=== PATIENT | male | born 1945 | race Caucasian/White ===

== ENCOUNTER 2019-01-17 21:38 | Inpatient (IN) | payer MEDICARE, OTHER ==
[~2019-01-17] VITALS: Ht 170.2 cm; Wt 72.7 kg
[2019-01-17] MEDS ORDERED: MORPHINE SULFATE 4 MG/ML, 1ML ONE (21:55)
[2019-01-17] MEDS ORDERED: MORPHINE SULFATE 4 MG/ML, 1ML IVPush PRN (22:00)
--- NOTE | 2019-01-17 22:00 | NUR ---
Patient placed on supplemental oxygen @ 2LPM after morphine administration. Call gudino within reach.
[2019-01-17 22:02] LABS: BASOPHILS # (AUTO) 0.06 x10^3/uL (0-0.1); BASOPHILS % (AUTO) 1 % (0-1); EOSINOPHILS # (AUTO) 0.01 x10^3/uL (0-0.4); EOSINOPHILS % (AUTO) 0 % (1-7); LYMPHOCYTES # (AUTO) 1.74 x10^3/uL (1-3.4); LYMPHOCYTES % (AUTO) 14 % (22-44); MD NO; MEAN CORPUSCULAR HEMOGLOBIN 36.1 pg (27.5-34.5); MEAN CORPUSCULAR HGB CONC 33.7 g/dL (33.2-36.2); MEAN PLATELET VOLUME 7.8 fL (7.4-10.4); MONOCYTES # (AUTO) 1.14 x10^3/uL (0.2-0.8); MONOCYTES % (AUTO) 9 % (2-9); NEUTROPHILS # (AUTO) 9.36 x10^3/uL (1.8-6.8); NEUTROPHILS % (AUTO) 76 % (42-75); PLATELET COUNT 210 x10^3/uL (130-400); RED BLOOD COUNT 4.43 x10^6/uL (4.38-5.82); RED CELL DISTRIBUTION WIDTH 14.6 % (9.4-14.8)
[2019-01-17 22:14] LABS: ALANINE AMINOTRANSFERASE 35 U/L (12-78); ALBUMIN 3.4 g/dL (3.4-5.0); ANION GAP 13 mmol/L (5-15); CALCIUM 8.6 mg/dL (8.5-10.1); CHLORIDE 96 mmol/L (98-107)
[2019-01-17 22:18] LABS: ALKALINE PHOSPHATASE 46 U/L (45-117); BILIRUBIN,TOTAL 1.2 mg/dL (0.2-1.0); TOTAL PROTEIN 7.5 g/dL (6.4-8.2); TROPONIN I < 0.015 ng/mL (0.000-0.045)
[2019-01-17] MEDS ORDERED: OMNIPAQUE 350 MG/ML, 100ML BOTTLE ONE (22:57)
--- NOTE | 2019-01-17 23:36 | NUR ---
Incentive spirometer provided with teaching, patient evaluated using demonstration, demonstrates appropriate use. Plan of care updated, patient is resistant to admission.
[2019-01-18] MEDS ORDERED: POTASSIUM CHLORIDE 20 MEQ, MAGNESIUM SULFATE 2 GM, THIAMINE 200 MG, MVI ADULT 10 ML, FO... IV SCH (00:18)
[2019-01-18] MEDS ORDERED: BISACODYL 10 MG SUPP PR PRN (00:30)
[2019-01-18] MEDS ORDERED: LORazepam 2 MG/ML, 1ML IV PRN ×5 (00:30)
[2019-01-18] MEDS ORDERED: ONDANSETRON ODT 4 MG PO PRN (00:30)
[2019-01-18] MEDS ORDERED: LORazepam 0.5MG TABLET PO PRN (00:30)
[2019-01-18] MEDS ORDERED: HYDROmorphone 2 MG/ML, 1ML IVPush PRN (00:30)
[2019-01-18] MEDS ORDERED: PROMETHAZINE 25 MG/ML, 1ML IM PRN (00:30)
[2019-01-18] MEDS ORDERED: KETOROLAC 30 MG/1 ML IVPush PRN (00:30)
[2019-01-18] MEDS ORDERED: POLYETHYLENE GLYCOL 17 GM PACKET PO PRN (00:30)
[2019-01-18] MEDS ORDERED: hydrALAzine 20 MG/ML, 1ML IVPush PRN (00:30)
[2019-01-18] MEDS ORDERED: DOCUSATE 100 MG CAPSULE PO PRN (00:30)
[2019-01-18] MEDS ORDERED: OXYcodone IR 5MG TABLET PO PRN (00:30)
[2019-01-18] MEDS ORDERED: ONDANSETRON 2MG/ML, 2ML IVPush PRN (00:30)
[2019-01-18] MEDS ORDERED: LORazepam 1MG TABLET PO PRN ×4 (00:30)
[2019-01-18 00:31] VITALS: BP 154/82
[2019-01-18 01:17] LABS: FREE T4 (FREE THYROXINE) 1.12 ng/dL (0.76-1.46); THYROID STIMULATING HORMONE 2.39 mIU/L (0.358-3.740)
[2019-01-18 01:35] LABS: HEMOGLOBIN A1C 5.4 % (4.2-6.3)
== END 2019-01-18 01:35 | disposition left against medical advice (07) | DRG 184 ==
LOC: ED 23:29 → EDIP 23:30 → 3NW 23:58
PROVIDERS: ADMIT Internal Medicine; ATTEND Internal Medicine
DX: S22.41XA Multiple fractures of ribs, right side, initial encounter for closed fracture (principal); E87.1 Hypo-osmolality and hyponatremia; F10.230 Alcohol dependence with withdrawal, uncomplicated; G62.1 Alcoholic polyneuropathy; E87.8 Other disorders of electrolyte and fluid balance, not elsewhere classified; M50.30 Other cervical disc degeneration, unspecified cervical region; Z53.21 Procedure and treatment not carried out due to patient leaving prior to being seen by health care provider; F10.220 Alcohol dependence with intoxication, uncomplicated; Y90.9 Presence of alcohol in blood, level not specified; F17.210 Nicotine dependence, cigarettes, uncomplicated; M47.892 Other spondylosis, cervical region; W18.2XXA Fall in (into) shower or empty bathtub, initial encounter; Y93.E1 Activity, personal bathing and showering; Y92.031 Bathroom in apartment as the place of occurrence of the external cause
CPT/HCPCS: 36415; 70450; 71250; 72125; 74177; 80053; 80307; 82306; 82607; 83036; 83735; 84100; 84439; 84443; 84484; 85025; 93005; 96374; G0378; Q9967; J2270

== ENCOUNTER 2019-02-02 15:30 | Inpatient (IN) | payer MEDICARE, OTHER ==
[~2019-02-02] VITALS: Ht 167.6 cm; Wt 77.0 kg
[2019-02-02] MEDS ORDERED: METOPROLOL 1 MG/ML, 5ML ONE (15:43)
[2019-02-02 15:52] LABS: BASOPHILS # (AUTO) 0.18 x10^3/uL (0-0.1); BASOPHILS % (AUTO) 2 % (0-1); EOSINOPHILS # (AUTO) 0.05 x10^3/uL (0-0.4); EOSINOPHILS % (AUTO) 1 % (1-7); LYMPHOCYTES # (AUTO) 2.35 x10^3/uL (1-3.4); LYMPHOCYTES % (AUTO) 21 % (22-44); MD NO; MEAN CORPUSCULAR HEMOGLOBIN 35.6 pg (27.5-34.5); MEAN CORPUSCULAR HGB CONC 33.1 g/dL (33.2-36.2); MEAN CORPUSCULAR VOLUME 107.6 fL (81-97); MEAN PLATELET VOLUME 7.4 fL (7.4-10.4); MONOCYTES # (AUTO) 0.83 x10^3/uL (0.2-0.8); MONOCYTES % (AUTO) 7 % (2-9); NEUTROPHILS # (AUTO) 7.93 x10^3/uL (1.8-6.8); NEUTROPHILS % (AUTO) 70 % (42-75); PLATELET COUNT 235 x10^3/uL (130-400); RED BLOOD COUNT 4.37 x10^6/uL (4.38-5.82)
[2019-02-02] MEDS ORDERED: METOPROLOL 1 MG/ML, 5ML IVPush ONE (16:00)
[2019-02-02] MEDS ORDERED: SODIUM CHLORIDE FLUSH 10ML SYR IVF ONE (16:00)
[2019-02-02 16:04] LABS: INTERNATIONAL NORMALIZED RATIO 1.01 (0.93-1.1); PROTHROMBIN TIME 10.6 Seconds (9.6-11.5)
[2019-02-02 16:09] LABS: TROPONIN I < 0.015 ng/mL (0.000-0.045)
--- NOTE | 2019-02-02 16:14 | NUR ---
URINE COLLECTED/SENT TO LAB. HR CONTINUES TO RANGE FROM 72-145 ON MONITOR. WHEN HR WITHIN NORMAL RATE, PT WITHOUT ABD PAIN. VS UPDATED IN COMPUTER.
[2019-02-02] MEDS ORDERED: MAGNESIUM SULFATE 3 GM, THIAMINE 100 MG, FOLIC ACID 1 MG, MVI ADULT 10 ML in SODIUM CHL... IV ONE (16:30)
[2019-02-02 16:32] LABS: AMPHETAMINE SCREEN, URINE Negative (Negative); BARBITURATE SCREEN, URINE Negative (Negative); BENZODIAZEPINE SCREEN, URINE Negative (Negative); CANNABINOID SCREEN, URINE Negative (Negative); COCAINE SCREEN, URINE Negative (Negative); METHADONE SCREEN, URINE Negative (Negative); OPIATE SCREEN, URINE Negative (Negative)
[2019-02-02] MEDS ORDERED: LORazepam 2 MG/ML, 1ML ONE (16:37)
[2019-02-02] MEDS: LORazepam 2 MG/ML, 1ML IVPush PRN ×2 (16:41→18:31)
[2019-02-02] MEDS ORDERED: AMIODARONE 50 MG/ML, 3ML ONE (16:42)
--- NOTE | 2019-02-02 16:48 | NUR ---
ATIVAN GIVEN FOR POTENTIAL ALCOHOL WITHDRAWAL. PT NORMALLY HEAVY DRINKER, 2 BEERS AND AT LEAST 12 OZ OF VODKA DAILY FOR GREATER THAN 15 YEARS. PER , PT HAS NEVER STOPPED DRINKING DURING 15 YEARS. AMIODARONE GIVEN FOR PERSISTENT AFIB WITH RVR, RATE UP TO 160S. FOLLOWING ADMINISTRATION, PT IN AFIB RANGING 70-80S RATE. BANANA BAG INFUSING PER ERP ORDER. AWAITING ADMIT BED.
[2019-02-02 16:55] LABS: ALANINE AMINOTRANSFERASE 34 U/L (12-78); ALBUMIN 3.2 g/dL (3.4-5.0); ANION GAP 10 mmol/L (5-15); CALCIUM 8.2 mg/dL (8.5-10.1); CHLORIDE 101 mmol/L (98-107); CREATININE 1.02 mg/dL (0.7-1.3)
--- NOTE | 2019-02-02 16:56 | NUR ---
DR KAUFFMAN IN TO SEE PT
[2019-02-02 16:57] LABS: ALKALINE PHOSPHATASE 95 U/L (45-117); BILIRUBIN,TOTAL 0.7 mg/dL (0.2-1.0); TOTAL PROTEIN 6.8 g/dL (6.4-8.2)
[2019-02-02] MEDS ORDERED: AMIODARONE 50 MG/ML, 3ML IVPush ONE (17:00)
[2019-02-02] MEDS ORDERED: POTASSIUM CHLORIDE 20 MEQ, MAGNESIUM SULFATE 2 GM, THIAMINE 200 MG, MVI ADULT 10 ML, FO... IV SCH (17:35)
--- NOTE | 2019-02-02 17:35 | NUR ---
REPORT CALLED TO VELASQUEZ ON TELE FLOOR.
[2019-02-02] MEDS ORDERED: MAGNESIUM SULFATE PMX 2GM/50ML 50 ML IV ONE (18:00)
[2019-02-02] MEDS ORDERED: DOCUSATE 100 MG CAPSULE PO PRN (18:00)
[2019-02-02] MEDS ORDERED: ONDANSETRON ODT 4 MG PO PRN (18:00)
[2019-02-02] MEDS ORDERED: ENALAPRILAT 1.25 MG/ML, 2ML IVPush PRN (18:00)
[2019-02-02] MEDS ORDERED: GUAIFENESIN/DM 200-20MG, 10ML UDC PO PRN (18:00)
[2019-02-02] MEDS ORDERED: AMIODARONE 900 MG in DEXTROSE 5% 482 ML IV PRN (18:00)
--- NOTE | 2019-02-02 18:44 | NUR ---
UPDATED REPORT TO VELASQUEZ RN, PT TRANSPORTED TO FLOOR
[2019-02-02] MEDS ORDERED: FILTER 0.22 MICRON IV PRN (19:00)
[2019-02-02 19:16] LABS: TROPONIN I < 0.015 ng/mL (0.000-0.045)
[2019-02-02 20:02] VITALS: BP 113/79
[2019-02-02] MEDS: NICOTINE 21 MG/24 HR PATCH.TD24 TD SCH (20:56)
[2019-02-02] MEDS: FAMOTIDINE 20 MG TABLET PO SCH (20:56)
[2019-02-02] MEDS: ENOXAPARIN 30 MG/0.3 ML SQ SCH (20:56)
[2019-02-02] MEDS: ZOLPIDEM 5MG TABLET PO PRN (22:32)
[2019-02-02] MEDS: IBUPROFEN 600 MG TABLET PO PRN (22:32)
[2019-02-02 22:41] LABS: TROPONIN I < 0.015 ng/mL (0.000-0.045)
[2019-02-03 01:38] VITALS: BP 123/75
[2019-02-03 05:14] LABS: BASOPHILS # (AUTO) 0.11 x10^3/uL (0-0.1); BASOPHILS % (AUTO) 1 % (0-1); EOSINOPHILS # (AUTO) 0.08 x10^3/uL (0-0.4); EOSINOPHILS % (AUTO) 1 % (1-7); LYMPHOCYTES # (AUTO) 1.99 x10^3/uL (1-3.4); LYMPHOCYTES % (AUTO) 19 % (22-44); MD NO; MEAN CORPUSCULAR HEMOGLOBIN 36.7 pg (27.5-34.5); MEAN CORPUSCULAR HGB CONC 33.6 g/dL (33.2-36.2); MEAN CORPUSCULAR VOLUME 109.3 fL (81-97); MEAN PLATELET VOLUME 7.7 fL (7.4-10.4); MONOCYTES # (AUTO) 0.65 x10^3/uL (0.2-0.8); MONOCYTES % (AUTO) 6 % (2-9); NEUTROPHILS % (AUTO) 73 % (42-75); PLATELET COUNT 184 x10^3/uL (130-400); RED BLOOD COUNT 3.87 x10^6/uL (4.38-5.82); RED CELL DISTRIBUTION WIDTH 15.2 % (9.4-14.8)
[2019-02-03 05:22] LABS: ANION GAP 9 mmol/L (5-15); CALCIUM 7.6 mg/dL (8.5-10.1); CHLORIDE 107 mmol/L (98-107)
[2019-02-03 05:26] LABS: CREATININE 0.67 mg/dL (0.7-1.3)
[2019-02-03 07:01] VITALS: BP 147/88
[2019-02-03 07:38] VITALS: BP 152/93
[2019-02-03] MEDS: ASCORBIC ACID 500 MG TABLET PO SCH ×2 (07:43→16:36)
[2019-02-03] MEDS: FAMOTIDINE 20 MG TABLET PO SCH ×2 (07:43→20:36)
[2019-02-03] MEDS: IBUPROFEN 600 MG TABLET PO PRN (07:43)
[2019-02-03] MEDS ORDERED: LORazepam 1MG TABLET ONE (09:56)
[2019-02-03] MEDS: ENOXAPARIN 30 MG/0.3 ML SQ SCH ×2 (09:59→20:37)
[2019-02-03] MEDS ORDERED: LORazepam 1MG TABLET PO PRN ×3 (10:00)
[2019-02-03] MEDS ORDERED: LORazepam 2 MG/ML, 1ML IV PRN ×2 (10:00)
[2019-02-03] MEDS: POTASSIUM CHLORIDE 20 MEQ, MAGNESIUM SULFATE 2 GM, THIAMINE 200 MG, MVI ADULT 10 ML, FO... IV SCH (11:09)
[2019-02-03] MEDS: LORazepam 1MG TABLET PO PRN (11:59)
[2019-02-03] MEDS: DOXYCYCLINE 100MG TABLET PO SCH ×2 (11:59→20:36)
[2019-02-03 12:06] VITALS: BP 118/73
[2019-02-03] MEDS ORDERED: AMIODARONE 900 MG in DEXTROSE 5% 482 ML IV SCH (15:30)
[2019-02-03 19:22] VITALS: BP 118/71
[2019-02-03] MEDS: NICOTINE 21 MG/24 HR PATCH.TD24 TD SCH (20:36)
[2019-02-03] MEDS: ZOLPIDEM 5MG TABLET PO PRN (22:29)
[2019-02-04 00:42] VITALS: BP 120/73
[2019-02-04 07:03] VITALS: BP 125/77
[2019-02-04] MEDS ORDERED: MAGNESIUM SULFATE PMX 2GM/50ML 50 ML IV ONE ×2 (07:30→17:00)
[2019-02-04] MEDS ORDERED: POTASSIUM CHLORIDE 20 MEQ in SODIUM CHLORIDE 0.9% 250 ML IV ONE (07:30)
[2019-02-04] MEDS ORDERED: ASCORBIC ACID 500 MG TABLET PO SCH (08:00)
[2019-02-04] MEDS: FAMOTIDINE 20 MG TABLET PO SCH ×2 (08:23→20:05)
[2019-02-04] MEDS: CALCIUM CARBONATE 500 MG TAB.CHEW PO SCH ×2 (08:23→20:05)
[2019-02-04] MEDS: ASCORBIC ACID 500 MG TABLET PO SCH ×2 (08:23→16:53)
[2019-02-04] MEDS: DOXYCYCLINE 100MG TABLET PO SCH ×2 (08:23→20:05)
[2019-02-04] MEDS: MULTIVITS,STRESS FORMULA 1 TABLET PO SCH (08:23)
[2019-02-04] MEDS: ENOXAPARIN 30 MG/0.3 ML SQ SCH ×3 (08:24→20:12)
[2019-02-04 08:40] LABS: ALBUMIN 2.5 g/dL (3.4-5.0); ANION GAP 8 mmol/L (5-15); CALCIUM 7.6 mg/dL (8.5-10.1); CHLORIDE 110 mmol/L (98-107); CREATININE 0.62 mg/dL (0.7-1.3)
[2019-02-04] MEDS: LORazepam 0.5MG TABLET PO PRN ×3 (08:55→20:05)
[2019-02-04] MEDS: POTASSIUM CHLORIDE 20 MEQ, MAGNESIUM SULFATE 2 GM, THIAMINE 200 MG, MVI ADULT 10 ML, FO... IV SCH (10:06)
[2019-02-04 13:11] VITALS: BP 150/77
[2019-02-04] MEDS ORDERED: CHOLECALCIFEROL 400 UNITS/ML ORAL SOL PO SCH (16:30)
[2019-02-04] MEDS: METOPROLOL TARTRATE 25 MG TABLET PO SCH ×2 (16:47→16:53)
[2019-02-04] MEDS: CHOLECALCIFEROL 400 UNITS TABLET PO SCH (17:18)
[2019-02-04 19:07] VITALS: BP 139/87
[2019-02-04] MEDS: NICOTINE 21 MG/24 HR PATCH.TD24 TD SCH (20:06)
[2019-02-04] MEDS: LORazepam 1MG TABLET PO PRN (23:59)
[2019-02-05] MEDS: LORazepam 2 MG/ML, 1ML IV PRN ×8 (00:15→14:50)
[2019-02-05 01:54] VITALS: BP 123/67
[2019-02-05 03:10] VITALS: BP 162/97
[2019-02-05] MEDS: CHLORDIAZEPOXIDE 25 MG CAPSULE PO SCH ×4 (04:00→20:46)
[2019-02-05 04:38] VITALS: BP 116/69
[2019-02-05 05:48] LABS: BASOPHILS % (AUTO) 0 % (0-1); EOSINOPHILS % (AUTO) 1 % (1-7); LYMPHOCYTES # (AUTO) 1.25 x10^3/uL (1-3.4); LYMPHOCYTES % (AUTO) 10 % (22-44); MEAN CORPUSCULAR HEMOGLOBIN 36.4 pg (27.5-34.5); MEAN CORPUSCULAR HGB CONC 33.5 g/dL (33.2-36.2); MEAN CORPUSCULAR VOLUME 108.9 fL (81-97); MEAN PLATELET VOLUME 7.8 fL (7.4-10.4); MONOCYTES # (AUTO) 0.98 x10^3/uL (0.2-0.8); MONOCYTES % (AUTO) 8 % (2-9); NEUTROPHILS # (AUTO) 9.76 x10^3/uL (1.8-6.8); NEUTROPHILS % (AUTO) 80 % (42-75); PLATELET COUNT 183 x10^3/uL (130-400); RED BLOOD COUNT 3.67 x10^6/uL (4.38-5.82); RED CELL DISTRIBUTION WIDTH 14.8 % (9.4-14.8)
[2019-02-05 05:49] LABS: BASOPHILS # (AUTO) 0.04 x10^3/uL (0-0.1); EOSINOPHILS # (AUTO) 0.15 x10^3/uL (0-0.4); MD NO
[2019-02-05] MEDS: METOPROLOL TARTRATE 25 MG TABLET PO SCH ×2 (05:53→20:46)
[2019-02-05 05:58] LABS: ALBUMIN 2.4 g/dL (3.4-5.0); ANION GAP 7 mmol/L (5-15); CALCIUM 7.8 mg/dL (8.5-10.1); CHLORIDE 106 mmol/L (98-107); CREATININE 0.68 mg/dL (0.7-1.3)
[2019-02-05] MEDS ORDERED: CYANOCOBALAMIN 1,000 MCG/ML, 1ML IM ONE (07:30)
[2019-02-05 07:40] VITALS: BP 138/52
[2019-02-05] MEDS: DOXYCYCLINE 100MG TABLET PO SCH ×2 (09:40→20:46)
[2019-02-05] MEDS: ASCORBIC ACID 500 MG TABLET PO SCH ×2 (09:40→17:49)
[2019-02-05] MEDS: FAMOTIDINE 20 MG TABLET PO SCH ×2 (09:40→20:46)
[2019-02-05] MEDS: BEER 12 OZ CAN PO SCH ×3 (09:41→20:46)
[2019-02-05] MEDS: CALCIUM CARBONATE 500 MG TAB.CHEW PO SCH ×2 (09:41→20:46)
[2019-02-05] MEDS: ENOXAPARIN 30 MG/0.3 ML SQ SCH ×2 (09:41→20:51)
[2019-02-05] MEDS: CHOLECALCIFEROL 400 UNITS TABLET PO SCH (09:41)
[2019-02-05] MEDS: POTASSIUM CHLORIDE 20 MEQ PACKET PO SCH ×2 (09:45→20:46)
[2019-02-05] MEDS: MULTIVITS,STRESS FORMULA 1 TABLET PO SCH (10:02)
[2019-02-05] MEDS ORDERED: AZITHROMYCIN 500 MG in SODIUM CHLORIDE 0.9% 250 ML IV ONE (12:30)
[2019-02-05 13:02] LABS: CULTURE INDICATED? YES; MICROSCOPIC INDICATED
[2019-02-05] MEDS ORDERED: CYANOCOBALAMIN 1,000 MCG/ML, 1ML ONE (13:57)
[2019-02-05] MEDS: PIPERACILLIN/TAZO/PMX 3.375GM 50 ML IV SCH ×2 (14:06→22:19)
[2019-02-05 14:47] VITALS: BP 154/79
[2019-02-05 19:26] VITALS: BP 135/79
[2019-02-05] MEDS: NICOTINE 21 MG/24 HR PATCH.TD24 TD SCH (20:46)
[2019-02-06 01:13] VITALS: BP 117/76
[2019-02-06] MEDS: LORazepam 2 MG/ML, 1ML IV PRN (03:53)
[2019-02-06] MEDS: PIPERACILLIN/TAZO/PMX 3.375GM 50 ML IV SCH ×2 (06:06→14:16)
[2019-02-06 08:02] VITALS: BP 125/83
[2019-02-06] MEDS: DOXYCYCLINE 100MG TABLET PO SCH (09:15)
[2019-02-06] MEDS: CHLORDIAZEPOXIDE 25 MG CAPSULE PO SCH ×2 (09:15→16:13)
[2019-02-06] MEDS: POTASSIUM CHLORIDE 20 MEQ PACKET PO SCH (09:16)
[2019-02-06] MEDS: METOPROLOL TARTRATE 25 MG TABLET PO SCH (09:16)
[2019-02-06] MEDS: ENOXAPARIN 30 MG/0.3 ML SQ SCH (09:24)
[2019-02-06] MEDS: CHOLECALCIFEROL 400 UNITS TABLET PO SCH (09:38)
[2019-02-06] MEDS: MULTIVITS,STRESS FORMULA 1 TABLET PO SCH (09:38)
[2019-02-06] MEDS: CALCIUM CARBONATE 500 MG TAB.CHEW PO SCH (09:39)
[2019-02-06] MEDS: ASCORBIC ACID 500 MG TABLET PO SCH (09:39)
[2019-02-06] MEDS: FAMOTIDINE 20 MG TABLET PO SCH (09:39)
[2019-02-06] MEDS: BEER 12 OZ CAN PO SCH ×2 (09:39→16:00)
[2019-02-06 12:18] LABS: MEAN CORPUSCULAR HEMOGLOBIN 35.6 pg (27.5-34.5); MEAN CORPUSCULAR HGB CONC 33.3 g/dL (33.2-36.2); MEAN CORPUSCULAR VOLUME 106.8 fL (81-97); MEAN PLATELET VOLUME 7.8 fL (7.4-10.4); PLATELET COUNT 202 x10^3/uL (130-400); RED BLOOD COUNT 4.29 x10^6/uL (4.38-5.82); RED CELL DISTRIBUTION WIDTH 14.9 % (9.4-14.8)
[2019-02-06 12:27] LABS: BASOPHILS # (AUTO) 0.04 x10^3/uL (0-0.1); BASOPHILS % (AUTO) 0 % (0-1); EOSINOPHILS # (AUTO) 0.13 x10^3/uL (0-0.4); EOSINOPHILS % (AUTO) 1 % (1-7); LYMPHOCYTES # (AUTO) 1.87 x10^3/uL (1-3.4); LYMPHOCYTES % (AUTO) 19 % (22-44); MD SCAN; MONOCYTES # (AUTO) 0.98 x10^3/uL (0.2-0.8); MONOCYTES % (AUTO) 10 % (2-9); NEUTROPHILS # (AUTO) 7.06 x10^3/uL (1.8-6.8); NEUTROPHILS % (AUTO) 70 % (42-75)
[2019-02-06 12:30] LABS: CLOSTRIDIUM DIFFICILE ANTIGEN NEGATIVE; CLOSTRIDIUM DIFFICILE TOXIN NEGATIVE (Negative)
[2019-02-06] MEDS ORDERED: AZITHROMYCIN 500 MG in SODIUM CHLORIDE 0.9% 250 ML IV SCH (12:30)
[2019-02-06] MEDS ORDERED: CHLO25CA9 PO (13:48)
[2019-02-06 14:26] VITALS: BP 129/85
[2019-02-06] MEDS ORDERED: SULFAMETH./TRIMETHOPRIM DS 800MG/160MG TABLET PO SCH (21:00)
[2019-02-22] MEDS ORDERED: NICO-487 TD (18:34)
[2019-03-14] MEDS ORDERED: ENOX40SY4 SQ (13:13)
[2019-03-14] MEDS ORDERED: QUET25TA7 PO (13:13)
[2019-03-14] MEDS ORDERED: METO25TA35 PO (13:13)
== END 2019-02-06 17:06 | disposition home health service (06) | DRG 391 ==
LOC: ED 16:35 → EDIP 16:36 → ED 16:41 → 5SO 18:42
PROVIDERS: ADMIT Internal Medicine; ATTEND Internal Medicine
DX: K29.20 Alcoholic gastritis without bleeding (principal); J18.9 Pneumonia, unspecified organism; I48.92 Unspecified atrial flutter; E46 Unspecified protein-calorie malnutrition; L03.115 Cellulitis of right lower limb; L03.116 Cellulitis of left lower limb; I50.32 Chronic diastolic (congestive) heart failure; I47.1 Supraventricular tachycardia; R55 Syncope and collapse; C44.90 Unspecified malignant neoplasm of skin, unspecified; D75.89 Other specified diseases of blood and blood-forming organs; E83.42 Hypomagnesemia; E83.51 Hypocalcemia; E86.0 Dehydration; F10.20 Alcohol dependence, uncomplicated; F17.210 Nicotine dependence, cigarettes, uncomplicated; I48.91 Unspecified atrial fibrillation; R73.9 Hyperglycemia, unspecified; Z68.37 Body mass index [BMI] 37.0-37.9, adult
CPT/HCPCS: 36415; 71045; 80048; 80053; 80069; 80307; 81001; 82607; 83735; 83880; 84443; 84484; 85025; 85610; 87070; 87077; 87086; 87186; 87205; 87324; 93005; 93306; 96365; 96366; 96375; 99291; G0378; J1650; J2543; J3411; J3475; J3480; J7042; J0282; J2060; J3420; J7030; J7050; J7060